=== PATIENT | female | born 1975 | race Caucasian/White ===

== ENCOUNTER 2018-03-03 11:30 | Emergency (ER) | payer SELFPAY ==
[2018-03-03] MEDS ORDERED: IPRATROPIUM BROM 0.5MG/2.5ML ONE (12:11)
[2018-03-03] MEDS ORDERED: ALBUTEROL 2.5 MG/3 ML NEB SOL ONE (12:11)
--- NOTE | 2018-03-03 12:54 | RAD REPORT ---
EXAM DESCRIPTION: RAD - Chest Pa And Lat (2 Views) - 03/03/2018 12:47 pm CLINICAL HISTORY: Cough;Congestion Chest pain. COMPARISON: No comparisons FINDINGS: The lungs are clear. The heart is normal in size. No displaced fractures. IMPRESSION: No acute or concerning finding suspected.
--- NOTE | 2018-03-03 13:49 | ER ---
Nurse's Notes [facility] Name: rBianne Lopez Age: 42 yrs Sex: Female : 1975 Arrival Date: 03/03/2018 Time: 11:32 Bed 16 Private MD: None, None Diagnosis: Wheezing Presentation: 03/03 11:45 Presenting complaint: Patient states: Productive cough, chills, sore throat, and ph vomiting after coughing, denies SOB at this time but reports feeling SOB last night. Transition of care: patient was not received from another setting of care. Onset of symptoms was March 03, 2018. Risk Assessment: Do you want to hurt yourself or someone else? Patient reports no desire to harm self or others. Initial Sepsis Screen: Does the patient meet any 2 criteria? No. Patient's initial sepsis screen is negative. Does the patient have a suspected source of infection? No. Patient's initial sepsis screen is negative. Care prior to arrival: Medication(s) given: Day-quil at 0700. 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 - Social history:: Smoking status: Patient uses tobacco products, denies chronic smoking, but will smoke occasionally. - Ebola Screening: : Patient denies travel to an Ebola-affected area in the 21 days before illness onset. Screenin:39 Abuse screen: Denies threats or abuse. Nutritional screening: No deficits noted. tw2 Tuberculosis screening: No symptoms or risk factors identified. Fall Risk None identified. Assessment: 12:00 General: Appears in no apparent distress. well groomed, Behavior is calm, cooperative, tw2 appropriate for age. Pain: Denies pain. Neuro: Level of Consciousness is awake, alert, obeys commands, Oriented to person, place, time, situation. Cardiovascular: Heart tones S1 S2 Capillary refill < 3 seconds Patient's skin is warm and dry. Respiratory: Reports cough that is Airway is patent Breath sounds are clear bilaterally. GI: No signs and/or symptoms were reported involving the gastrointestinal system. : No signs and/or symptoms were reported regarding the genitourinary system. EENT: No signs and/or symptoms were reported regarding the EENT system. Musculoskeletal: Range of motion: intact in all extremities. 13:38 Reassessment: Patient appears in no apparent distress at this time. No changes from tw2 previously documented assessment. Patient and/or family updated on plan of care and expected duration. Pain level reassessed. Patient is alert, oriented x 3, equal unlabored respirations, skin warm/dry/pink. 14:15 Reassessment: Patient appears in no apparent distress at this time. No changes from tw2 previously documented assessment. Patient and/or family updated on plan of care and expected duration. Pain level reassessed. Patient is alert, oriented x 3, equal unlabored respirations, skin warm/dry/pink. Vital Signs: 11:48 BP 148 / 94; Pulse 68; Resp 18; Temp 97.8; Pulse Ox 100% on R/A; Weight 91.63 kg; ph Height 5 ft. 7 in. (170.18 cm); Pain 2/10; 12:55 BP 133 / 81; Pulse 82; Resp 17; Pulse Ox 96% on R/A; tw2 13:36 BP 128 / 81; Pulse 78; Resp 17; Pulse Ox 97% on R/A; tw2 11:48 Body Mass Index 31.64 (91.63 kg, 170.18 cm) ph ED Course: 11:32 Patient arrived in ED. sb2 11:32 None, None is Private Physician. sb2 11:47 Triage completed. ph 11:49 Arm band placed on. ph 11:50 Bed in low position. Call light in reach. Side rails up X 1. Pulse ox on. NIBP on. tw2 11:54 Giovanna Mack FNP-C [facility]. kb 11:54 Kevon Fong MD is Attending Physician. kb 12:00 Nayeli Oconnell RN is Primary Nurse. tw2 12:13 Flu Sent. tw2 12:47 Chest Pa And Lat (2 Views) XRAY In Process Unspecified. EDMS 14:15 No provider procedures requiring assistance completed. IV discontinued, intact, tw2 bleeding controlled, No redness/swelling at site. Pressure dressing applied. Administered Medications: 12:10 Drug: DuoNeb (3:1) (2.5 mg - 0.5 mg) 3 ml Route: Nebulizer; tw2 13:40 Follow up: Response: No adverse reaction tw2 Outcome: 13:48 Discharge ordered by . andreas 14:15 Discharged to home ambulatory. tw2 14:15 Condition: stable 14:15 Condition: stable 14:15 Discharge instructions given to patient, Instructed on discharge instructions, follow up and referral plans. medication usage, Demonstrated understanding of instructions, follow-up care, medications, Prescriptions given X 1. 14:16 Patient left the ED. tw2 Signatures: Dispatcher [employer] EDMS Giovanna Mack, STAFF RADIATION THERAPIST-C STAFF RADIATION THERAPIST-Rochelle Howell RN RN Nayeli Oconnell RN RN tw2 Lorrie Bonilla sb2
--- NOTE | 2018-03-03 13:49 | EDPHYS ---
Physician Documentation [facility] Name: Brianne Lopez Age: 42 yrs Sex: Female : 1975 Arrival Date: 03/03/2018 Time: 11:32 Bed 16 Private MD: None, None ED Physician Kevon Fong HPI: 03/03 14:29 This 42 yrs old Female presents to ER via Ambulatory with complaints of kb WHEEZING. 14:29 The patient presents to the emergency department with wheezing, Current therapy: None, kb that began without any particular precipitating event, the patient was reported to have audible wheezing, non-productive cough. Onset: The symptoms/episode began/occurred 2 day(s) ago. Modifying factors: The symptoms are alleviated by nothing, the symptoms are aggravated by nothing. Associated signs and symptoms: The patient has no apparent associated signs or symptoms. Severity of symptoms: At their worst the symptoms were mild moderate in the emergency department the symptoms are unchanged. The patient has experienced similar episodes in the past. The patient has not recently seen a physician. Pt reports cough and wheezing that started 2 days ago. Was worse last night and she couldn't sleep without sitting up. States when this happens at home she has to go to the hospital for breathing treatments and it makes it better. . 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 - Social history:: Smoking status: Patient uses tobacco products, denies chronic smoking, but will smoke occasionally. - Ebola Screening: : Patient denies travel to an Ebola-affected area in the 21 days before illness onset. ROS: 14:33 Constitutional: Negative for fever, chills, and weight loss, ENT: Negative for injury, kb pain, and discharge, Neck: Negative for injury, pain, and swelling, Cardiovascular: Negative for chest pain, palpitations, and edema, Abdomen/GI: Negative for abdominal pain, nausea, vomiting, diarrhea, and constipation, Back: Negative for injury and pain, MS/Extremity: Negative for injury and deformity, Skin: Negative for injury, rash, and discoloration, Neuro: Negative for headache, weakness, numbness, tingling, and seizure. 14:33 Respiratory: Positive for cough, wheezing, Negative for dyspnea on exertion, hemoptysis, orthopnea, pleurisy, shortness of breath, sputum production. Exam: 14:35 Constitutional: This is a well developed, well nourished patient who is awake, alert, kb and in no acute distress. Head/Face: Normocephalic, atraumatic. ENT: Nares patent. No nasal discharge, no septal abnormalities noted. Tympanic membranes are normal and external auditory canals are clear. Oropharynx with no redness, swelling, or masses, exudates, or evidence of obstruction, uvula midline. Mucous membranes moist. Neck: Trachea midline, no thyromegaly or masses palpated, and no cervical lymphadenopathy. Supple, full range of motion without nuchal rigidity, or vertebral point tenderness. No Meningismus. Chest/axilla: Normal chest wall appearance and motion. Nontender with no deformity. No lesions are appreciated. Cardiovascular: Regular rate and rhythm with a normal S1 and S2. No gallops, murmurs, or rubs. Normal PMI, no JVD. No pulse deficits. Respiratory: Lungs have equal breath sounds bilaterally, clear to auscultation and percussion. No rales, rhonchi or wheezes noted. No increased work of breathing, no retractions or nasal flaring. Abdomen/GI: Soft, non-tender, with normal bowel sounds. No distension or tympany. No guarding or rebound. No evidence of tenderness throughout. Back: No spinal tenderness. No costovertebral tenderness. Full range of motion. Skin: Warm, dry with normal turgor. Normal color with no rashes, no lesions, and no evidence of cellulitis. MS/ Extremity: Pulses equal, no cyanosis. Neurovascular intact. Full, normal range of motion. Neuro: Awake and alert, GCS 15, oriented to person, place, time, and situation. Cranial nerves II-XII grossly intact. Motor strength 5/5 in all extremities. Sensory grossly intact. Cerebellar exam normal. Normal gait. Vital Signs: 11:48 BP 148 / 94; Pulse 68; Resp 18; Temp 97.8; Pulse Ox 100% on R/A; Weight 91.63 kg; ph Height 5 ft. 7 in. (170.18 cm); Pain 2/10; 12:55 BP 133 / 81; Pulse 82; Resp 17; Pulse Ox 96% on R/A; tw2 13:36 BP 128 / 81; Pulse 78; Resp 17; Pulse Ox 97% on R/A; tw2 11:48 Body Mass Index 31.64 (91.63 kg, 170.18 cm) ph MDM: 11:54 Patient medically screened. kb 13:48 Data reviewed: vital signs, nurses notes. Data interpreted: Pulse oximetry: on room air kb is 97 %. Interpretation: normal. Counseling: I had a detailed discussion with the patient and/or guardian regarding: the historical points, exam findings, and any diagnostic results supporting the discharge/admit diagnosis, lab results, radiology results, the need for outpatient follow up, a family practitioner, to return to the emergency department if symptoms worsen or persist or if there are any questions or concerns that arise at home. 03/03 11:54 Order name: Flu; Complete Time: 12:41 kb 03/03 11:54 Order name: Chest Pa And Lat (2 Views) XRAY; Complete Time: 13:10 kb Administered Medications: 12:10 Drug: DuoNeb (3:1) (2.5 mg - 0.5 mg) 3 ml Route: Nebulizer; tw2 13:40 Follow up: Response: No adverse reaction tw2 Disposition: 17:03 Co-signature as Attending Physician, Kevon Fong MD available for consultation at ps1 all times . Disposition: 03/03/18 13:48 Discharged to Home. Impression: Wheezing. - Condition is Stable. - Discharge Instructions: Asthma, Adult, [id number], Cough, Adult, [id number], How to Use an Inhaler, [id number]. - Prescriptions for Albuterol Sulfate 90 mcg/actuation - inhale 1-2 puff by INHALATION route every 4-6 hours; 1 Inhaler. - Medication Reconciliation Form, Thank You Letter, Antibiotic Education, Prescription Opioid Use, Work release form form. - Follow up: Emergency Department; When: As needed; Reason: Worsening of condition. Follow up: Private Physician; When: 2 - 3 days; Reason: Recheck today's complaints, Continuance of care, Re-evaluation by your physician. Signatures: Dispatcher [employer] Giovanna Marquez FNP-C FNP-Denisha Rochelle De La Vega, RN RN Nayeli Oconnell RN RN tw2 Kevon Fong MD MD ps1 Corrections: (The following items were deleted from the chart) 14:16 13:48 03/03/2018 13:48 Discharged to Home. Impression: Wheezing. Condition is Stable. tw2 Forms are Work release form, Medication Reconciliation Form, Thank You Letter, Antibiotic Education, Prescription Opioid Use. Follow up: Emergency Department; When: As needed; Reason: Worsening of condition. Follow up: Private Physician; When: 2 - 3 days; Reason: Recheck today's complaints, Continuance of care, Re-evaluation by your physician. kb
== END 2018-03-03 14:16 | disposition home or self-care (01) ==
LOC: ER 11:30
DX: R06.2 Wheezing (principal); Z72.0 Tobacco use
CPT/HCPCS: 71046; 87804; 94640; 99284